=== PATIENT | female | born 1995 | race Caucasian/White ===

== ENCOUNTER → 2024-03-15 | Outpatient (CLI) | payer OTHER ==
--- NOTE | 2024-03-15 11:20 | XR ---
EXAMINATION TYPE: XR chest 2V DATE OF EXAM: 03/15/2024 10:30 AM CLINICAL INDICATION:Female, 28 years old with history of R07.9 CHEST PAIN, UNSPECIFIED; PHH COMPARISON: None TECHNIQUE: XR chest 2V Frontal and lateral views of the chest. FINDINGS: Lungs/Pleura: There is no evidence of pleural effusion, focal consolidation, or pneumothorax. Pulmonary vascularity: Unremarkable. Heart/mediastinum: Cardiomediastinal silhouette is unremarkable. Musculoskeletal: No acute osseous pathology. IMPRESSION: No acute cardiopulmonary disease/process.
== END | disposition home or self-care (01) ==
LOC: RADXRMAIN 09:58
PROVIDERS: ATTEND Internal Medicine
DX: Z00.00 Encounter for general adult medical examination without abnormal findings (principal); R07.9 Chest pain, unspecified
CPT/HCPCS: 71046

== ENCOUNTER → 2024-03-22 | Outpatient (CLI) | payer OTHER ==
--- NOTE | 2024-03-22 15:38 | CA ---
Exercise Stress Test Report Name: AMANDO HAMILTON Exam Date: 03/22/2024 11:31 Exam Location: [place] Stress Ht (in): 63 Wt (lb): 135 BSA: 1.64 Ordering Phys: Chava Segovia DO Referring Phys: Carmen Woody [facility] Technologist: Mirna Lyles RDCS Age: 28 Gender: F : 1995 Procedure CPT: Indications: I51.7 Cardiomegaly ICD-10 Codes: Patient History: NONE Medications: NONE Meds past 24 hrs: Pretest Chest Pain: STRESS TEST Kelvin Protocol Exercise Duration (min:sec): 13:[address] Depressions (mm): Angina Score: Henson Score: Resting HR (bpm): 56 Peak HR (bpm): 163 Resting BP (mmHg): 118 / 69 Peak BP (mmHg): 163 / 55 MPHR: 190 Target HR: 162 % MPHR: 86 METS: 14.5 Total Dose: Peak Dose: Atropine: Double Product: 40252 BP Response: Stress Termination: Reached target heart rate Stress Symptoms: No chest pain or symptoms Stress Summary: ECG ANALYSIS Resting ECG: Stress ECG: CONCLUSIONS Patient underwent exercise stress EKG with a Kelvin protocol treadmill stress test. Patient exercised into Stage 5 for a total of 13 minutes and 23 seconds reaching a total of 14.5 METS. Patient's maximum heart rate was 163 which represented 85% age-predicted maximum heart rate. Stress EKG findings: At baseline patient's EKG showed sinus rhythm, normal axis, no significant ST or T wave abnormalities. At peak exercise, EKG showed no significant change from baseline. Conclusions: 1. Normal EKG response to exercise without evidence of inducible ischemia. 2. Excellent exercise capacity. Dr. Quinn Traore DO (Electronically Signed) Final Date: 22 Mar 2024 15:36
== END | disposition home or self-care (01) ==
LOC: RADNMMAIN 11:13
PROVIDERS: ATTEND Internal Medicine
DX: I51.7 Cardiomegaly (principal)
CPT/HCPCS: 93017